=== PATIENT | male | born 1960 | race Caucasian/White ===

== ENCOUNTER 2016-12-12 09:22 | Inpatient (IN) | payer MEDICAID ==
[~2016-12-12] VITALS: Ht 167.6 cm; Wt 78.0 kg
[2016-12-12] MEDS ORDERED: LISI-170 PO (10:37)
[2016-12-12] MEDS ORDERED: VANCOMYCIN 1,500 MG in SODIUM CHLORIDE 0.9% 250 ML IV ONE (11:00)
[2016-12-12] MEDS ORDERED: SODIUM CHLORIDE 0.9% 1,000ML IVBOLUS ONE (11:00)
[2016-12-12] MEDS ORDERED: SODIUM CHLORIDE FLUSH 10ML SYR IVF ONE (11:00)
[2016-12-12] MEDS ORDERED: VANCOMYCIN PER PHARMACY MC ONE (11:00)
[2016-12-12] MEDS ORDERED: PIPERACILLIN/TAZO/PMX 3.375GM 50 ML IVPB ONE (11:00)
[2016-12-12] MEDS ORDERED: PIPERACILLIN/TAZO/PMX 3.375GM 50 ML ONE (11:11)
[2016-12-12 11:29] LABS: HEMOGLOBIN 13.3 g/dL (13.7-18.0)
[2016-12-12 11:41] LABS: BLOOD UREA NITROGEN 15 mg/dL (7-18)
[2016-12-12 11:44] LABS: ASPARTATE AMINO TRANSFERASE 112 U/L (15-37)
[2016-12-12] MEDS: SENNA/DOCUSATE TABLET PO SCH (13:00)
[2016-12-12] MEDS ORDERED: SODIUM CHLORIDE FLUSH 10ML SYR IVF PRN (13:00)
[2016-12-12] MEDS ORDERED: ONDANSETRON 2MG/ML, 2ML IVP PRN (13:00)
[2016-12-12] MEDS ORDERED: ENALAPRILAT 1.25 MG/ML, 2ML IVPush PRN (13:00)
[2016-12-12] MEDS ORDERED: VANCOMYCIN PER PHARMACY MC PRN (13:00)
[2016-12-12] MEDS ORDERED: ONDANSETRON 2MG/ML, 2ML ONE (13:11)
[2016-12-12] MEDS ORDERED: MORPHINE SULFATE 4 MG/ML, 1ML ONE (13:11)
[2016-12-12] MEDS: MORPHINE SULFATE 4 MG/ML, 1ML IVPush PRN ×2 (13:15→21:29)
[2016-12-12] MEDS ORDERED: PHARMACOKINETIC MONITORING MC PRN (15:00)
[2016-12-12] MEDS ORDERED: PHARMACOKINETIC CONSULTATION MC ONE (15:00)
[2016-12-12] MEDS: SODIUM CHLORIDE 0.9% 1,000 ML IV SCH (15:12)
[2016-12-12 15:18] VITALS: BP 104/65
[2016-12-12] MEDS: LISINOPRIL 20 MG TABLET PO SCH (15:24)
[2016-12-12] MEDS: AMPICILLIN/SULBACTAM 3 GM in SODIUM CHLORIDE 0.9% 100 ML IV SCH ×2 (15:24→21:28)
[2016-12-12] MEDS: HYDROcodone/APAP 5/325 TABLET PO PRN (16:15)
[2016-12-12 20:00] VITALS: BP 124/68
[2016-12-12] MEDS: ENOXAPARIN 40 MG/0.4 ML SQ SCH (21:28)
[2016-12-13] MEDS: SODIUM CHLORIDE 0.9% 1,000 ML IV SCH ×3 (00:42→17:42)
[2016-12-13] MEDS: MORPHINE SULFATE 4 MG/ML, 1ML IVPush PRN (00:48)
[2016-12-13 03:00] VITALS: BP 125/73
[2016-12-13] MEDS: AMPICILLIN/SULBACTAM 3 GM in SODIUM CHLORIDE 0.9% 100 ML IV SCH ×4 (03:32→22:40)
[2016-12-13] MEDS: HYDROcodone/APAP 5/325 TABLET PO PRN ×4 (03:36→21:43)
[2016-12-13] MEDS: VANCOMYCIN 1,600 MG in SODIUM CHLORIDE 0.9% 250 ML IV SCH ×2 (05:50→23:14)
[2016-12-13 06:13] LABS: HEMOGLOBIN 12.9 g/dL (13.7-18.0)
[2016-12-13 06:25] LABS: BLOOD UREA NITROGEN 15 mg/dL (7-18)
[2016-12-13 07:32] VITALS: BP 117/66
[2016-12-13 09:23] LABS: DIFF TOTAL CELLS COUNTED 100 CELL DIFF
[2016-12-13 09:25] LABS: VERIFY COUNTS? YES
[2016-12-13] MEDS: SENNA/DOCUSATE TABLET PO SCH (09:30)
[2016-12-13] MEDS: LISINOPRIL 20 MG TABLET PO SCH (09:30)
[2016-12-13 13:19] VITALS: BP 117/63
[2016-12-13 19:45] VITALS: BP 98/57
[2016-12-13] MEDS: ENOXAPARIN 40 MG/0.4 ML SQ SCH (21:42)
[2016-12-14] MEDS: HYDROcodone/APAP 5/325 TABLET PO PRN ×5 (03:17→23:30)
[2016-12-14 03:30] VITALS: BP 117/62
[2016-12-14] MEDS: AMPICILLIN/SULBACTAM 3 GM in SODIUM CHLORIDE 0.9% 100 ML IV SCH ×4 (04:47→23:30)
[2016-12-14] MEDS: SODIUM CHLORIDE 0.9% 1,000 ML IV SCH ×3 (06:00→20:51)
[2016-12-14 06:06] LABS: HEMOGLOBIN 11.9 g/dL (13.7-18.0)
[2016-12-14 06:09] LABS: BLOOD UREA NITROGEN 8 mg/dL (7-18)
[2016-12-14 08:14] VITALS: BP 107/64
[2016-12-14 09:00] VITALS: BP 123/60
[2016-12-14] MEDS: SENNA/DOCUSATE TABLET PO SCH (09:00)
[2016-12-14] MEDS: MORPHINE SULFATE 4 MG/ML, 1ML IVPush PRN ×3 (10:23→20:51)
[2016-12-14] MEDS: LISINOPRIL 20 MG TABLET PO SCH (10:23)
[2016-12-14 13:36] VITALS: BP 140/85
[2016-12-14] MEDS: VANCOMYCIN 1,600 MG in SODIUM CHLORIDE 0.9% 250 ML IV SCH (17:42)
[2016-12-14 19:39] VITALS: BP 157/88
[2016-12-14] MEDS: ENOXAPARIN 40 MG/0.4 ML SQ SCH (20:51)
[2016-12-15 03:02] VITALS: BP 137/76
[2016-12-15] MEDS: SODIUM CHLORIDE 0.9% 1,000 ML IV SCH ×3 (05:22→23:51)
[2016-12-15] MEDS: MORPHINE SULFATE 4 MG/ML, 1ML IVPush PRN ×5 (05:22→20:43)
[2016-12-15] MEDS: AMPICILLIN/SULBACTAM 3 GM in SODIUM CHLORIDE 0.9% 100 ML IV SCH ×4 (05:22→23:51)
[2016-12-15 06:40] LABS: BLOOD UREA NITROGEN 9 mg/dL (7-18)
[2016-12-15 06:44] LABS: HEMOGLOBIN 11.9 g/dL (13.7-18.0)
[2016-12-15 07:15] VITALS: BP 152/81
[2016-12-15] MEDS: LISINOPRIL 20 MG TABLET PO SCH (08:10)
[2016-12-15] MEDS: SENNA/DOCUSATE TABLET PO SCH (08:10)
[2016-12-15] MEDS: HYDROcodone/APAP 5/325 TABLET PO PRN ×2 (08:10→23:51)
[2016-12-15] MEDS: VANCOMYCIN 1,600 MG in SODIUM CHLORIDE 0.9% 250 ML IV SCH ×2 (11:23→13:26)
[2016-12-15 13:46] VITALS: BP 154/88
[2016-12-15 20:14] VITALS: BP 167/83
[2016-12-15] MEDS: ENOXAPARIN 40 MG/0.4 ML SQ SCH (20:43)
[2016-12-16 02:47] VITALS: BP 149/85
[2016-12-16] MEDS: AMPICILLIN/SULBACTAM 3 GM in SODIUM CHLORIDE 0.9% 100 ML IV SCH ×4 (04:32→23:08)
[2016-12-16] MEDS: VANCOMYCIN 1,600 MG in SODIUM CHLORIDE 0.9% 250 ML IV SCH (05:11)
[2016-12-16 08:09] VITALS: BP 146/79
[2016-12-16] MEDS: SENNA/DOCUSATE TABLET PO SCH (09:00)
[2016-12-16] MEDS: LISINOPRIL 20 MG TABLET PO SCH (10:16)
[2016-12-16] MEDS: SODIUM CHLORIDE 0.9% 1,000 ML IV SCH (10:16)
[2016-12-16] MEDS: HYDROcodone/APAP 5/325 TABLET PO PRN ×3 (10:25→21:14)
[2016-12-16 14:00] VITALS: BP 155/99
[2016-12-16] MEDS: MORPHINE SULFATE 4 MG/ML, 1ML IVPush PRN ×2 (18:43→23:08)
[2016-12-16 19:12] VITALS: BP 150/86
[2016-12-16] MEDS: ENOXAPARIN 40 MG/0.4 ML SQ SCH (21:14)
[2016-12-17 01:21] VITALS: BP 131/71
[2016-12-17] MEDS: AMPICILLIN/SULBACTAM 3 GM in SODIUM CHLORIDE 0.9% 100 ML IV SCH ×4 (05:13→22:58)
[2016-12-17 07:49] VITALS: BP 173/90
[2016-12-17] MEDS: SENNA/DOCUSATE TABLET PO SCH (08:55)
[2016-12-17] MEDS: HYDROcodone/APAP 5/325 TABLET PO PRN ×2 (09:38→20:48)
[2016-12-17] MEDS: LISINOPRIL 20 MG TABLET PO SCH (09:39)
[2016-12-17 12:40] VITALS: BP 175/99
[2016-12-17] MEDS: MORPHINE SULFATE 4 MG/ML, 1ML IVPush PRN ×2 (13:10→18:47)
[2016-12-17 19:52] VITALS: BP 137/75
[2016-12-17] MEDS: ENOXAPARIN 40 MG/0.4 ML SQ SCH (20:48)
[2016-12-18 01:20] VITALS: BP 127/74
[2016-12-18] MEDS: AMPICILLIN/SULBACTAM 3 GM in SODIUM CHLORIDE 0.9% 100 ML IV SCH ×4 (05:09→23:28)
[2016-12-18] MEDS: HYDROcodone/APAP 5/325 TABLET PO PRN ×4 (05:10→21:02)
[2016-12-18 08:01] VITALS: BP 160/82
[2016-12-18] MEDS: SENNA/DOCUSATE TABLET PO SCH (09:00)
[2016-12-18] MEDS: LISINOPRIL 20 MG TABLET PO SCH (10:14)
[2016-12-18 14:44] VITALS: BP 158/80
[2016-12-18 20:13] VITALS: BP 133/79
[2016-12-18] MEDS: ENOXAPARIN 40 MG/0.4 ML SQ SCH (21:07)
[2016-12-19 01:53] VITALS: BP 127/77
[2016-12-19 04:29] LABS: HEMOGLOBIN 13.6 g/dL (13.7-18.0)
[2016-12-19 04:35] LABS: BLOOD UREA NITROGEN 17 mg/dL (7-18)
[2016-12-19] MEDS: AMPICILLIN/SULBACTAM 3 GM in SODIUM CHLORIDE 0.9% 100 ML IV SCH ×4 (06:03→22:05)
[2016-12-19 07:36] VITALS: BP 133/79
[2016-12-19] MEDS: SENNA/DOCUSATE TABLET PO SCH (09:00)
[2016-12-19] MEDS: HYDROcodone/APAP 5/325 TABLET PO PRN ×3 (09:03→22:07)
[2016-12-19] MEDS: LISINOPRIL 20 MG TABLET PO SCH (09:03)
[2016-12-19] MEDS: MORPHINE SULFATE 4 MG/ML, 1ML IVPush PRN (12:16)
[2016-12-19 14:17] VITALS: BP 106/73
[2016-12-19 19:49] LABS: HIV 1&2 ANTIBODY SCREEN Nonreactive (Nonreactive); HIV-1 p24 ANTIGEN Nonreactive (Nonreactive)
[2016-12-19 20:20] VITALS: BP 124/77
[2016-12-19] MEDS: DOXYCYCLINE 50 MG/5 ML ORAL SUSP PO SCH (22:05)
[2016-12-19] MEDS: ENOXAPARIN 40 MG/0.4 ML SQ SCH (22:07)
[2016-12-20 02:10] VITALS: BP 119/74
[2016-12-20 05:11] LABS: BLOOD UREA NITROGEN 15 mg/dL (7-18)
[2016-12-20 05:17] LABS: ASPARTATE AMINO TRANSFERASE 49 U/L (15-37)
[2016-12-20] MEDS: AMPICILLIN/SULBACTAM 3 GM in SODIUM CHLORIDE 0.9% 100 ML IV SCH ×4 (06:03→22:43)
[2016-12-20 07:34] VITALS: BP 125/77
[2016-12-20] MEDS: SENNA/DOCUSATE TABLET PO SCH (09:00)
[2016-12-20] MEDS: DOXYCYCLINE 50 MG/5 ML ORAL SUSP PO SCH ×2 (09:47→22:00)
[2016-12-20] MEDS: LISINOPRIL 20 MG TABLET PO SCH (09:47)
[2016-12-20] MEDS: MORPHINE SULFATE 4 MG/ML, 1ML IVPush PRN (09:53)
[2016-12-20 14:14] VITALS: BP 130/87
[2016-12-20] MEDS: HYDROcodone/APAP 5/325 TABLET PO PRN ×2 (16:20→20:30)
[2016-12-20 20:16] VITALS: BP 118/77
[2016-12-20] MEDS: ENOXAPARIN 40 MG/0.4 ML SQ SCH (22:00)
[2016-12-21 02:15] VITALS: BP 100/64
[2016-12-21] MEDS: HYDROcodone/APAP 5/325 TABLET PO PRN ×4 (02:21→21:35)
[2016-12-21] MEDS: AMPICILLIN/SULBACTAM 3 GM in SODIUM CHLORIDE 0.9% 100 ML IV SCH ×4 (05:15→23:13)
[2016-12-21 07:43] VITALS: BP 135/86
[2016-12-21] MEDS: SENNA/DOCUSATE TABLET PO SCH (09:00)
[2016-12-21] MEDS: LISINOPRIL 20 MG TABLET PO SCH (09:23)
[2016-12-21] MEDS: DOXYCYCLINE 50 MG/5 ML ORAL SUSP PO SCH ×2 (09:23→21:35)
[2016-12-21 16:48] VITALS: BP 135/85
[2016-12-21] MEDS: MORPHINE SULFATE 4 MG/ML, 1ML IVPush PRN (17:15)
[2016-12-21 19:33] VITALS: BP 142/88
[2016-12-21] MEDS: ENOXAPARIN 40 MG/0.4 ML SQ SCH (21:35)
[2016-12-22 04:17] VITALS: BP 139/82
[2016-12-22] MEDS: AMPICILLIN/SULBACTAM 3 GM in SODIUM CHLORIDE 0.9% 100 ML IV SCH ×4 (05:27→22:20)
[2016-12-22] MEDS: HYDROcodone/APAP 5/325 TABLET PO PRN ×2 (06:30→11:03)
[2016-12-22 08:41] VITALS: BP 143/99
[2016-12-22] MEDS: SENNA/DOCUSATE TABLET PO SCH (09:00)
[2016-12-22] MEDS: MORPHINE SULFATE 4 MG/ML, 1ML IVPush PRN ×4 (09:09→22:20)
[2016-12-22] MEDS: LISINOPRIL 20 MG TABLET PO SCH (09:10)
[2016-12-22] MEDS: DOXYCYCLINE 50 MG/5 ML ORAL SUSP PO SCH ×2 (09:10→22:20)
[2016-12-22] MEDS ORDERED: GADOBUTROL 7.5 MMOL/7.5 ML PFS ONE (11:54)
[2016-12-22] MEDS: LORazepam 0.5MG TABLET PO PRN ×2 (12:44→22:20)
[2016-12-22 13:50] VITALS: BP 133/83
[2016-12-22] MEDS: OXYcodone/APAP 5/325MG TABLET PO PRN (17:10)
[2016-12-22 19:56] VITALS: BP 119/79
[2016-12-22] MEDS: ENOXAPARIN 40 MG/0.4 ML SQ SCH (22:20)
[2016-12-23 03:31] VITALS: BP 124/82
[2016-12-23] MEDS: AMPICILLIN/SULBACTAM 3 GM in SODIUM CHLORIDE 0.9% 100 ML IV SCH ×4 (04:39→22:12)
[2016-12-23 05:11] LABS: HEPATITIS B SURFACE AG SCREEN Negative (Negative)
[2016-12-23] MEDS: MORPHINE SULFATE 4 MG/ML, 1ML IVPush PRN ×3 (05:42→19:59)
[2016-12-23 07:39] VITALS: BP 126/76
[2016-12-23] MEDS: LISINOPRIL 20 MG TABLET PO SCH (07:40)
[2016-12-23] MEDS: DOXYCYCLINE 50 MG/5 ML ORAL SUSP PO SCH ×2 (07:40→22:13)
[2016-12-23] MEDS: OXYcodone/APAP 5/325MG TABLET PO PRN ×3 (08:40→22:13)
[2016-12-23] MEDS: SENNA/DOCUSATE TABLET PO SCH (09:00)
[2016-12-23 14:40] VITALS: BP 182/94
[2016-12-23] MEDS: LORazepam 0.5MG TABLET PO PRN ×2 (16:46→22:13)
[2016-12-23 19:51] VITALS: BP 157/86
[2016-12-23] MEDS: ENOXAPARIN 40 MG/0.4 ML SQ SCH (22:13)
[2016-12-24 01:27] VITALS: BP 151/82
[2016-12-24] MEDS: AMPICILLIN/SULBACTAM 3 GM in SODIUM CHLORIDE 0.9% 100 ML IV SCH ×4 (04:40→23:15)
[2016-12-24] MEDS: MORPHINE SULFATE 4 MG/ML, 1ML IVPush PRN (04:40)
[2016-12-24 08:36] VITALS: BP 110/73
[2016-12-24] MEDS: SENNA/DOCUSATE TABLET PO SCH (09:00)
[2016-12-24] MEDS: LISINOPRIL 20 MG TABLET PO SCH (09:15)
[2016-12-24] MEDS: DOXYCYCLINE 50 MG/5 ML ORAL SUSP PO SCH ×2 (09:15→21:52)
[2016-12-24] MEDS: OXYcodone/APAP 5/325MG TABLET PO PRN ×3 (09:15→21:52)
[2016-12-24 14:14] VITALS: BP 105/67
[2016-12-24 20:00] VITALS: BP 161/80
[2016-12-24] MEDS: ENOXAPARIN 40 MG/0.4 ML SQ SCH (21:52)
[2016-12-24] MEDS: LORazepam 0.5MG TABLET PO PRN (21:52)
[2016-12-25 02:00] VITALS: BP 120/74
[2016-12-25] MEDS: OXYcodone/APAP 5/325MG TABLET PO PRN ×3 (05:25→17:50)
[2016-12-25] MEDS: AMPICILLIN/SULBACTAM 3 GM in SODIUM CHLORIDE 0.9% 100 ML IV SCH ×4 (05:25→23:48)
[2016-12-25 08:18] VITALS: BP 125/85
[2016-12-25] MEDS: SENNA/DOCUSATE TABLET PO SCH (08:33)
[2016-12-25] MEDS: LISINOPRIL 20 MG TABLET PO SCH (08:33)
[2016-12-25] MEDS: DOXYCYCLINE 50 MG/5 ML ORAL SUSP PO SCH ×2 (08:33→19:52)
[2016-12-25 13:47] VITALS: BP 113/76
[2016-12-25] MEDS: MORPHINE SULFATE 4 MG/ML, 1ML IVPush PRN (15:50)
[2016-12-25 19:44] VITALS: BP 139/85
[2016-12-25] MEDS: ENOXAPARIN 40 MG/0.4 ML SQ SCH (19:51)
[2016-12-25] MEDS: LORazepam 0.5MG TABLET PO PRN (19:51)
[2016-12-26 02:00] VITALS: BP 105/71
[2016-12-26] MEDS: MORPHINE SULFATE 4 MG/ML, 1ML IVPush PRN ×4 (04:22→18:02)
[2016-12-26] MEDS: AMPICILLIN/SULBACTAM 3 GM in SODIUM CHLORIDE 0.9% 100 ML IV SCH ×4 (05:30→23:01)
[2016-12-26 07:57] VITALS: BP 115/71
[2016-12-26] MEDS: SENNA/DOCUSATE TABLET PO SCH (09:00)
[2016-12-26] MEDS: OXYcodone/APAP 5/325MG TABLET PO PRN ×2 (09:17→15:34)
[2016-12-26] MEDS: DOXYCYCLINE 50 MG/5 ML ORAL SUSP PO SCH ×2 (09:18→19:58)
[2016-12-26] MEDS: LISINOPRIL 20 MG TABLET PO SCH (09:18)
[2016-12-26] MEDS: LORazepam 0.5MG TABLET PO PRN ×2 (11:23→19:58)
[2016-12-26 13:27] VITALS: BP 131/82
[2016-12-26] MEDS ORDERED: GADOBUTROL 7.5 MMOL/7.5 ML PFS ONE (14:40)
[2016-12-26 19:18] VITALS: BP 133/79
[2016-12-26] MEDS: ENOXAPARIN 40 MG/0.4 ML SQ SCH (19:58)
[2016-12-27 02:00] VITALS: BP 110/75
[2016-12-27] MEDS: AMPICILLIN/SULBACTAM 3 GM in SODIUM CHLORIDE 0.9% 100 ML IV SCH ×4 (05:00→23:57)
[2016-12-27] MEDS: OXYcodone/APAP 5/325MG TABLET PO PRN (05:03)
[2016-12-27 07:41] VITALS: BP 128/80
[2016-12-27] MEDS: DOXYCYCLINE 50 MG/5 ML ORAL SUSP PO SCH ×2 (08:55→21:29)
[2016-12-27] MEDS: MORPHINE SULFATE 4 MG/ML, 1ML IVPush PRN (08:55)
[2016-12-27] MEDS: SENNA/DOCUSATE TABLET PO SCH (08:59)
[2016-12-27] MEDS: LISINOPRIL 20 MG TABLET PO SCH (09:00)
[2016-12-27] MEDS: OXYcodone/APAP 7.5/325MG TABLET PO PRN ×2 (12:53→19:45)
[2016-12-27 13:43] VITALS: BP 112/76
[2016-12-27 19:33] VITALS: BP 127/80
[2016-12-27] MEDS: ENOXAPARIN 40 MG/0.4 ML SQ SCH (21:29)
[2016-12-27] MEDS: LORazepam 0.5MG TABLET PO PRN (21:29)
[2016-12-28 02:00] VITALS: BP 121/76
[2016-12-28] MEDS: AMPICILLIN/SULBACTAM 3 GM in SODIUM CHLORIDE 0.9% 100 ML IV SCH (05:51)
[2016-12-28 08:07] VITALS: BP 134/83
[2016-12-28] MEDS: DOXYCYCLINE 50 MG/5 ML ORAL SUSP PO SCH ×2 (08:36→19:16)
[2016-12-28] MEDS: OXYcodone/APAP 7.5/325MG TABLET PO PRN ×3 (08:36→23:26)
[2016-12-28] MEDS: LISINOPRIL 20 MG TABLET PO SCH (08:36)
[2016-12-28] MEDS: SENNA/DOCUSATE TABLET PO SCH (08:36)
[2016-12-28] MEDS: AMOXICILLIN/CLAV 500-125MG TABLET PO SCH ×3 (09:39→23:26)
[2016-12-28] MEDS: LORazepam 0.5MG TABLET PO PRN ×2 (11:08→19:17)
[2016-12-28 13:53] VITALS: BP 122/77
[2016-12-28] MEDS: ENOXAPARIN 40 MG/0.4 ML SQ SCH (19:14)
[2016-12-28 20:46] VITALS: BP 137/81
[2016-12-29 03:27] VITALS: BP 97/58
[2016-12-29] MEDS: OXYcodone/APAP 7.5/325MG TABLET PO PRN (06:01)
[2016-12-29 06:20] LABS: HEMOGLOBIN 14.6 g/dL (13.7-18.0)
[2016-12-29 06:32] LABS: BLOOD UREA NITROGEN 18 mg/dL (7-18)
[2016-12-29 06:37] LABS: ASPARTATE AMINO TRANSFERASE 44 U/L (15-37)
[2016-12-29 06:39] LABS: C-REACTIVE PROTEIN, QUANT < 0.02 mg/dL (0.02-0.49)
[2016-12-29 08:05] VITALS: BP 126/84
[2016-12-29] MEDS: AMOXICILLIN/CLAV 500-125MG TABLET PO SCH (08:06)
[2016-12-29] MEDS: DOXYCYCLINE 50 MG/5 ML ORAL SUSP PO SCH (08:07)
[2016-12-29] MEDS: LISINOPRIL 20 MG TABLET PO SCH (08:07)
[2016-12-29] MEDS: SENNA/DOCUSATE TABLET PO SCH (09:00)
[2016-12-29] MEDS ORDERED: DOXY100T PO ×2 (09:32→10:46)
[2016-12-29] MEDS ORDERED: AMOX-367 PO ×2 (09:32→10:46)
[2016-12-29] MEDS ORDERED: PNEUMOCOCCAL 23 VACCINE IM-VACC ONE (10:30)
[2016-12-29] MEDS ORDERED: LISI-170 PO ×2 (10:46→11:34)
[2016-12-29] MEDS ORDERED: HYDR-883 PO (11:34)
[2016-12-29] MEDS ORDERED: LORA-445 PO (11:35)
== END 2016-12-29 13:13 | disposition home or self-care (01) | DRG 871 ==
LOC: ED 11:23 → EDIP 12:57 → 3NE 14:00
PROVIDERS: ADMIT Hospitalist; ATTEND Hospitalist
PROC: 0R9T3ZZ Drainage of Left Carpometacarpal Joint, Percutaneous Approach (ICD-10-PCS; principal; 2016-12-16)
DX: A41.9 Sepsis, unspecified organism (principal); E43 Unspecified severe protein-calorie malnutrition; L03.114 Cellulitis of left upper limb; E87.1 Hypo-osmolality and hyponatremia; L02.512 Cutaneous abscess of left hand; I10 Essential (primary) hypertension; E66.9 Obesity, unspecified; E78.00 Pure hypercholesterolemia, unspecified; F15.10 Other stimulant abuse, uncomplicated; D64.9 Anemia, unspecified; B18.2 Chronic viral hepatitis C; F17.210 Nicotine dependence, cigarettes, uncomplicated; M65.842 Other synovitis and tenosynovitis, left hand; F19.10 Other psychoactive substance abuse, uncomplicated; Z23 Encounter for immunization; Z79.899 Other long term (current) drug therapy; Z98.890 Other specified postprocedural states; Z68.28 Body mass index [BMI] 28.0-28.9, adult
CPT/HCPCS: 36415; 80048; 80053; 80061; 82040; 83605; 84145; 85025; 85651; 86140; 86703; 86704; 86706; 87040; 87070; 87205; 87324; 87340; 87899; 90732; 93306; 96365; 96367; 96375; A9585; J0295; J1650; J2405; J2543; J3370; G0435; J7030; J7050

== ENCOUNTER 2017-04-11 05:09 | Emergency (ER) | payer MEDICAID ==
[~2017-04-11] VITALS: Ht 167.6 cm; Wt 69.2 kg
[~2017-04-11 05:09] MED LIST: AMOX-367 PO; DOXY100T PO; HYDR-883 PO; LISI-170 PO; LORA-445 PO
[2017-04-11] MEDS ORDERED: MORPHINE SULFATE 4 MG/ML, 1ML ONE ×2 (05:55→05:59)
[2017-04-11] MEDS ORDERED: ONDANSETRON 2MG/ML, 2ML ONE ×2 (05:55→05:59)
[2017-04-11] MEDS ORDERED: VANCOMYCIN PER PHARMACY MC PRN (06:00)
[2017-04-11] MEDS ORDERED: MORPHINE SULFATE 4 MG/ML, 1ML IV PRN (06:00)
[2017-04-11] MEDS ORDERED: ONDANSETRON 2MG/ML, 2ML IVPush ONE (06:00)
[2017-04-11] MEDS ORDERED: VANCOMYCIN 1,400 MG in SODIUM CHLORIDE 0.9% 250 ML IV ONE (06:00)
[2017-04-11] MEDS ORDERED: LIDOCAINE 1%-EPI 1:100K, 20ML SQ ONE (06:00)
[2017-04-11 06:34] LABS: BLOOD UREA NITROGEN 16 mg/dL (7-18)
[2017-04-11] MEDS ORDERED: LIDOCAINE 1%, 20ML ONE (06:59)
[2017-04-11 09:05] VITALS: BP 130/78
== END 2017-04-11 09:08 | disposition home or self-care (01) ==
LOC: ED 07:32
DX: L02.512 Cutaneous abscess of left hand (principal); F15.10 Other stimulant abuse, uncomplicated; I10 Essential (primary) hypertension; F17.200 Nicotine dependence, unspecified, uncomplicated
CPT/HCPCS: 10060; 36415; 73110; 76882; 80048; 82040; 83605; 85025; 85651; 87040; 96365; 96366; 96375; 99285; J2405; J3370; J7050

== ENCOUNTER 2019-03-18 02:52 | Emergency (ER) | payer MEDICAID ==
[~2019-03-18] VITALS: Ht 167.6 cm; Wt 72.1 kg
[~2019-03-18 02:52] MED LIST changes: +HYDR-3652 PO; -HYDR-883 PO
[2019-03-18 03:38] VITALS: BP 194/102
== END 2019-03-18 03:53 | disposition home or self-care (01) ==
LOC: ED 03:45
DX: K02.9 Dental caries, unspecified (principal); K08.89 Other specified disorders of teeth and supporting structures; I10 Essential (primary) hypertension; F17.200 Nicotine dependence, unspecified, uncomplicated
CPT/HCPCS: 93005; 99283